=== PATIENT | female | born 1945 | race Caucasian/White ===

== ENCOUNTER 2020-09-04 10:45 | Outpatient (CLI) | payer OTHER ==
[2020-09-04] MEDS ORDERED: NITR100C PO (14:29)
== END 2020-09-04 23:59 | disposition home or self-care (01) ==
LOC: STAR 10:45
PROVIDERS: ATTEND Orthopaedic Surgery
DX: Z02.9 Encounter for administrative examinations, unspecified (principal)

== ENCOUNTER 2020-09-07 05:45 | Day surgery (SDC) | payer OTHER ==
[2020-09-04 11:54] LABS: MICROSCOPIC INDICATED
[2020-09-04 12:30] LABS: BASOPHILS % (AUTO) 0 % (0-1); EOSINOPHILS % (AUTO) 6 % (1-7); LYMPHOCYTES % (AUTO) 15 % (22-44); MEAN CORPUSCULAR HEMOGLOBIN 30.8 pg (27.0-34.8); MEAN PLATELET VOLUME 6.8 fL (7.4-10.4); MONOCYTES % (AUTO) 9 % (2-9); NEUTROPHILS % (AUTO) 69 % (42-75); PLATELET COUNT 282 x10^3/uL (130-400); RED BLOOD COUNT 4.57 x10^6/uL (3.82-5.3); RED CELL DISTRIBUTION WIDTH 13.8 % (9.6-15.2)
[2020-09-04 12:43] LABS: INTERNATIONAL NORMALIZED RATIO 0.97 (0.93-1.1); PROTHROMBIN TIME 10.4 Seconds (9.6-11.5)
[2020-09-04 12:45] LABS: ALBUMIN 3.8 g/dL (3.4-5.0); ANION GAP 6 mmol/L (5-15); CALCIUM 9.2 mg/dL (8.5-10.1); CHLORIDE 104 mmol/L (98-107)
[2020-09-04 12:49] LABS: ALANINE AMINOTRANSFERASE 58 U/L (12-78); ALKALINE PHOSPHATASE 87 U/L (45-117); BILIRUBIN,TOTAL 0.6 mg/dL (0.2-1.0); CREATININE 0.84 mg/dL (0.55-1.02); TOTAL PROTEIN 7.8 g/dL (6.4-8.2)
[~2020-09-07] VITALS: Ht 168.9 cm; Wt 51.2 kg
[~2020-09-07 05:45] MED LIST: NITR100C PO
[2020-09-07] MEDS ORDERED: KETOROLAC 60 MG/2 ML ONE (05:49)
[2020-09-07] MEDS ORDERED: TRANEXAMIC ACID 100 MG/ML, 10ML ONE ×2 (05:49)
[2020-09-07] MEDS ORDERED: SODIUM CHLORIDE 0.9% 50 ML ONE (05:50)
[2020-09-07] MEDS ORDERED: EPINEPHRINE 1 MG/ML, 1ML ONE (05:50)
[2020-09-07] MEDS ORDERED: ROPIvacaine/PF 0.5%, 30 ML ONE (05:50)
[2020-09-07] MEDS ORDERED: VANCOMYCIN 1,000 MG ONE (05:50)
[2020-09-07] MEDS ORDERED: CHLORHEXIDINE 15 ML UDC PO ONE (06:20)
[2020-09-07] MEDS ORDERED: GABAPENTIN 300 MG CAPSULE PO ONE (06:20)
[2020-09-07] MEDS ORDERED: ACETAMINOPHEN 500 MG TABLET PO ONE (06:20)
[2020-09-07 06:22] VITALS: BP 120/81
[2020-09-07] MEDS ORDERED: LACTATED RINGERS 1,000 ML IV SCH (06:30)
[2020-09-07] MEDS ORDERED: LIDOCAINE-MPF 1%, 2ML INFIL ONE (06:30)
[2020-09-07] MEDS ORDERED: CLINDAMYCIN 150 MG/ML, 6ML ONE (06:35)
[2020-09-07] MEDS ORDERED: ACETAMINOPHEN 650 MG/20.3 ML UDC PO PRN (07:00)
[2020-09-07] MEDS ORDERED: CLINDAMYCIN PMX 600MG/50ML 50 ML IV SCH (07:00)
[2020-09-07] MEDS ORDERED: ONDANSETRON 4 MG TABLET PO PRN (07:00)
[2020-09-07] MEDS ORDERED: ONDANSETRON 2MG/ML, 2ML IV PRN (07:00)
[2020-09-07] MEDS ORDERED: ZOLPIDEM 5MG TABLET PO PRN (07:00)
[2020-09-07] MEDS ORDERED: DIPHENHYDRAMINE 25 MG CAPSULE PO PRN (07:00)
[2020-09-07] MEDS ORDERED: SENNA/DOCUSATE TABLET PO PRN (07:00)
[2020-09-07] MEDS ORDERED: OXYcodone IR 5MG TABLET PO PRN (07:00)
[2020-09-07] MEDS ORDERED: NS + 20MEQ KCL 1,000 ML IV SCH (07:00)
[2020-09-07] MEDS ORDERED: MAGNESIUM HYDROXIDE 8%, 30ML UDC PO PRN (07:00)
[2020-09-07] MEDS ORDERED: HYDROcodone/APAP 5/325 TABLET PO PRN (07:00)
[2020-09-07] MEDS ORDERED: BISACODYL 10 MG SUPP PR PRN (07:00)
[2020-09-07] MEDS ORDERED: LABETALOL 5MG/ML, 20ML IV PRN (07:30)
[2020-09-07] MEDS ORDERED: hydrALAzine 20 MG/ML, 1ML IV PRN (07:30)
[2020-09-07] MEDS ORDERED: ACETAMINOPHEN 325 MG TABLET PO PRN (07:30)
[2020-09-07] MEDS ORDERED: FENTANYL PF 100 MCG/2ML IV PRN (07:30)
[2020-09-07] MEDS ORDERED: ONDANSETRON 2MG/ML, 2ML IVPush PRN (07:30)
[2020-09-07] MEDS ORDERED: MEPERIDINE/PF 25MG/0.5ML IVPush PRN (07:30)
[2020-09-07] MEDS ORDERED: PROMETHAZINE 25 MG/ML, 1ML IVPush PRN (07:30)
[2020-09-07] MEDS ORDERED: OXYcodone 5 MG/5 ML ORAL.SOL UDC PO PRN (07:30)
[2020-09-07] MEDS ORDERED: DOCUSATE 100 MG CAPSULE PO SCH (09:00)
[2020-09-07] MEDS ORDERED: ASPIRIN 81 MG TABLET EC PO SCH (18:00)
[2020-09-08] MEDS ORDERED: DEXAMETHASONE 4 MG/ML, 1ML IVPush SCH (06:00)
== END 2020-09-07 12:35 | disposition home or self-care (01) ==
LOC: OUT 05:45
PROVIDERS: ATTEND Orthopaedic Surgery
DX: M16.11 Unilateral primary osteoarthritis, right hip (principal); M25.751 Osteophyte, right hip; G47.30 Sleep apnea, unspecified; Z20.822 Contact with and (suspected) exposure to COVID-19; Z79.01 Long term (current) use of anticoagulants; Z79.899 Other long term (current) drug therapy; Z86.12 Personal history of poliomyelitis; Z88.0 Allergy status to penicillin; Z88.8 Allergy status to other drugs, medicaments and biological substances; Z82.61 Family history of arthritis
CPT/HCPCS: 27130; 36415; 72170; 73501; 80053; 81001; 83036; 85025; 85610; 85730; 87081; 87086; 93005; 97162; 97165; C1713; C1776; J0171; J1885; J2795; J3370; J7120; U0003; U0005; 76000